=== PATIENT | male | born 1995 | race Caucasian/White ===

== ENCOUNTER 2021-03-21 18:56 | Emergency (ER) | payer OTHER ==
[~2021-03-21] VITALS: Ht 175.3 cm; Wt 86.5 kg
[2021-03-21] MEDS ORDERED: LIDOCAINE 1% MDV 20ML VIAL SC ONE (21:15)
[2021-03-21 21:43] VITALS: BP 122/64
== END 2021-03-21 21:56 | disposition home or self-care (01) ==
LOC: M ED 18:56
DX: S61.210A Laceration without foreign body of right index finger without damage to nail, initial encounter (principal); W31.2XXA Contact with powered woodworking and forming machines, initial encounter; Y92.009 Unspecified place in unspecified non-institutional (private) residence as the place of occurrence of the external cause; Y93.89 Activity, other specified; Y99.8 Other external cause status; Z87.891 Personal history of nicotine dependence

== ENCOUNTER → 2023-05-07 | Outpatient (CLI) | payer OTHER | LOC: M PLAIMG 07:06 | PROVIDERS: ATTEND Physician Assistant | DX: M25.562 Pain in left knee (principal) ==

== ENCOUNTER 2024-01-06 07:52 | Day surgery (SDC) | payer OTHER ==
[~2024-01-06] VITALS: Ht 172.7 cm; Wt 85.7 kg
[~2024-01-06 07:52] MED LIST: AMIT10TA7 PO; MELO7.5T35 PO
[2024-01-06] MEDS ORDERED: LR 1,000 ML IV SCH ×2 (08:25→10:05)
[2024-01-06] MEDS ORDERED: fentaNYL 100 MCG/2 ML INJECTION As Ordered ONE (09:40)
[2024-01-06] MEDS ORDERED: MIDAZOLAM INJ 2MG/2ML VIAL As Ordered ONE (09:40)
[2024-01-06] MEDS ORDERED: LIDOCAINE 2% 100MG/5ML SDV (FOR ANES.) As Ordered ONE (09:46)
[2024-01-06] MEDS ORDERED: SUGAMMADEX SODIUM 500 MG/5 ML VIAL (BRIDION) As Ordered ONE (09:46)
[2024-01-06] MEDS ORDERED: propofoL 200 MG/20 ML VIAL As Ordered ONE (09:46)
[2024-01-06] MEDS ORDERED: ROCURONIUM BROMIDE 50MG/5ML VIAL As Ordered ONE (09:46)
[2024-01-06] MEDS ORDERED: ACETAMINOPHEN 1000MG 100ML IV BAG As Ordered ONE (09:46)
[2024-01-06] MEDS ORDERED: ONDANSETRON 4MG 2ML VIAL As Ordered ONE (09:48)
[2024-01-06] MEDS: LIDOCAINE W/EPINEPHRINE 1% 20ML VIAL As Ordered ONE (09:55)
[2024-01-06] MEDS ORDERED: HYDROMORPHONE HCL 0.5 MG/ 0.5 ML SYRINGE IV PRN (10:05)
[2024-01-06] MEDS ORDERED: ONDANSETRON 4MG 2ML VIAL IV PRN (10:05)
[2024-01-06] MEDS ORDERED: fentaNYL 100 MCG/2 ML INJECTION IV PRN (10:05)
[2024-01-06] MEDS: oxyCODONE 5MG TAB PO PRN (10:31)
[2024-01-06 11:30] VITALS: BP 118/68; TEMP 96.9; O2SAT 98
== END 2024-01-06 11:30 | disposition home or self-care (01) ==
LOC: M SDC 07:52
PROVIDERS: ATTEND Otolaryngology
DX: K13.79 Other lesions of oral mucosa (principal); F43.10 Post-traumatic stress disorder, unspecified; G43.909 Migraine, unspecified, not intractable, without status migrainosus; Z79.899 Other long term (current) drug therapy; F17.200 Nicotine dependence, unspecified, uncomplicated
CPT/HCPCS: 42808; 88305; J0131; J1100; J2250; J2405; J3010